=== PATIENT | female | born 1965 | race Caucasian/White ===

== ENCOUNTER 2018-08-25 09:56 | Observation (INO) ==
[2018-08-25] MEDS ORDERED: ASPIRIN 81 MG TAB.CHEW PO ONE (10:07)
--- NOTE | 2018-08-25 10:15 | ERNOTE ---
Chest Pain/Cardiac HPI Date of Service: 08/25/18 Chief Complaint: Chest Pain Time Seen by Provider: 08/25/18 10:03 Source: patient Exam Limitations: no limitations Allergies/Adverse Reactions: Allergies adhesive tape Allergy (Verified 06/23/18 12:44) povidone-iodine [From Betadine] Allergy (Verified 06/23/18 12:44) soap [From Betadine] Allergy (Verified 08/25/18 10:06) Home Medications: HOME MEDICATIONS albuterol sulfate HFA 90 mcg/actuation aerosol inhaler 2 puff IH .q4-6h PRN g 06/23/18 [Last Taken Unknown] cholecalciferol (vitamin D3) 50,000 unit capsule 50,000 unit PO QWEEK 06/23/18 [Last Taken Unknown] duloxetine 30 mg capsule,delayed release 30 mg PO DAILY 06/23/18 [Last Taken Unknown] gabapentin 300 mg capsule 300 mg PO TID 06/23/18 [Last Taken Unknown] polyethylene glycol 3350 17 gram/dose oral powder 17 g PO DAILY g 06/23/18 [Last Taken Unknown] potassium gluconate 550 mg (90 mg) tablet 550 mg PO DAILY tab 06/23/18 [Last Taken Unknown] vitamin B12 500 mcg-folic acid 400 mcg tablet 1 tab PO DAILY 06/23/18 [Last Taken Unknown] Pain Score #1 Pain Score: 7 Narrative: The patient is a 53 year old female who presents for left anterior chest pain which has been present for 3 hours. There are associated symptoms of nausea and fatigue. The patient reports pain to left anterior chest, 7/10. There are no alleviating factors. There are aggravating factors of activity and deep breathing. Previous treatments have included: none. The past medical history includes: depression, CKD and HLD. The social history is positive for current tobacco and marijuana use. The patient has had no ill contacts. Patient denies previous cardiac workup. Nitro Today/Relief: no nitro taken today Aspirin Treatment Today: no aspirin today Associated Symptoms: Present: cough, nausea, back pain. Absent: dizziness, shortness of breath, diaphoresis, fever/chills, vomiting, abdominal pain Prior Chest Pain/Cardiac Workup: Reports: no prior cardiac workup Review of Systems - Review of Systems Constitutional: Present: fatigue. Absent: fever EYE: Present: no symptoms reported ENT: Present: no symptoms reported. Absent: ear pain, nasal drainage, sore throat Respiratory: Present: cough. Absent: shortness of breath, wheezing Cardiology: Present: chest pain Gastrointestinal/Abdominal: Present: nausea. Absent: vomiting, diarrhea, abdominal pain Genitourinary: Present: no symptoms reported. Absent: dysuria Musculoskeletal: Present: back pain Skin: Present: no symptoms reported. Absent: rash Neurological: Present: no symptoms reported Endocrine: Present: no symptoms reported Hematologic/Lymphatic: Present: no symptoms reported Psych: Present: no symptoms reported All Other Systems: All systems neg except as marked Medical History (Last Reviewed 08/25/18 @ 10:13 by PENELOPE Benton) Cigarette nicotine dependence Onset Date: Unknown Depression Onset Date: Unknown Chronic kidney disease Onset Date: Unknown Chronic pain Onset Date: Unknown Hyperlipidemia Onset Date: Unknown Vitamin D deficiency Onset Date: Unknown Surgical History: Surgical History (Last Reviewed 08/25/18 @ 10:13 by PENELOPE Benton) History of section history of mass removed from vocal cords Onset Date: ~2017 Family History: Family History (Last Reviewed 08/25/18 @ 10:13 by PENELOPE Benton) Father No problems noted. Mother CAD (coronary artery disease) Brother Cancer Aunt Cancer Uncle Cancer leukemia Social History: Preferred Language Albanian Smoking Status Current every day smoker Have you smoked in the past 12 Yes months Alcohol Use none Drug Use marijuana No Social History Section defined Physical Exam - Physical Exam General Appearance: Present: wd/wn, alert, mild distress Head Exam: Present: normal inspection Eye Exam: Normal inspection: bilateral Neck: Present: normal inspection Respiratory: Present: no respiratory distress, normal breath sounds, no accessory muscle use, lungs clear, chest tenderness - left anterior chest with palpation Cardiovascular/Chest: Present: regular rate, rhythm, no murmur Peripheral Pulses: N=norm/S=strong/W=weak/B=bound/A=absent: Radial (L): Normal Gastrointestinal/Abdominal: Present: normal bowel sounds, nontender, nondistended, soft, no organomegaly Back Exam: Present: no vertebral tenderness Neurological Exam: Present: alert, oriented, normal mood/affect Skin Exam: Present: normal color, warm/dry Progress - Date and Time Seen: Date and Time: 08/25/18 11:24 Reviewed case with . Initial trop negative with improvement to pain following administration of Nitro. Discussed use of Nitro paste with due to improvement of pain, due to hypotension following administration would like to hold off for now and monitor for repeat trop. Patient was administered aspirin prior to admission. Will start patient on statin for admission. - Results and Orders Patient's Lab Results:: I have reviewed the patient's lab results. - Vital Signs Patient's Vital Signs:: I have reviewed the patient's vital signs. Vital Signs: Vital Signs 08/25/18 09:59 Temperature 36.0 C Pulse Rate 65 Respiratory Rate 24 H Blood Pressure 140/88 H O2 Sat by Pulse Oximetry 99 - EKG EKG #1 EKG: NSR EKG read: Reviewed by me - X-Ray X-Ray #1 X-Ray: chest Interpretation: Reviewed by me X-ray Comments: No acute cardiopulmonary abnormalities. - Progress/Reassessment Chief Complaint: Chest Pain Departure Clinical Impression: Chest pain Qualifiers: Chest pain type: unspecified Qualified Code(s): R07.9 - Chest pain, unspecified - Departure Disposition: Still a patient Condition: Good
[2018-08-25] MEDS: NITROGLYCERIN 0.4 MG/TAB BTL SL PRN ×3 (10:30→10:50)
[2018-08-25 10:34] LABS: Hematocrit 40.4 % (37.0-47.0); Hemoglobin 13.2 gm/dL (12.5-16.0); Mean Cell Volume 97.3 fl (78-100); Mean Corpuscular Hemoglobin 31.8 pg (27-31); Mean Corpuscular Hgb Conc 32.7 g/dl (32-36); Mean Platelet Volume 11.3 fl (8-12.5); Neutrophil # 3.8 K/mm3 (1.3-6.0); Neutrophil % 59.3 % (42-75.0); Platelet Count 311 K/mm3 (150-450); Red Blood Count 4.15 M/mm3 (4.2-5.4); Red Cell Distribution Width 14.2 % (11.5-14.0); White Blood Count 6.4 K/mm3 (4.0-10.5)
[2018-08-25 10:47] LABS: INR 1.01 INR (0.92-1.08)
[2018-08-25 10:54] LABS: ALT 20 U/L (19-67); AST 20 U/L (0-48); Albumin * 3.3 gm/dl (3.4-5.0); Alkaline Phosphatase * 78 U/L (50-170); Anion Gap 12.5 mmol/L (6.8-13.8); Bilirubin, Total 0.4 mg/dL (0.0-1.1); Blood Urea Nitrogen 10 mg/dL (3-23); Ca. Corrected For Albumin 9.2 mg/dL (8.4-10.2); Carbon Dioxide 27.4 mmol/L (24-32.6); Chloride 105 mmol/L (97-106); Glucose * 101 mg/dL (70-110); Potassium 3.9 mmol/L (3.4-4.6); Sodium 141 mmol/L (132-142); Total Protein 6.7 gm/dL (6.2-8.2); Troponin I Less than 0.017 ng/mL (0.00-0.10)
[2018-08-25] MEDS ORDERED: ROSUVASTATIN CALCIUM 20 MG TABLET PO STA (11:37)
[2018-08-25 11:53] LABS: Urine Bilirubin Negative (NEGATIVE); Urine Blood Negative /ul (NEGATIVE); Urine Ketone Negative (NEGATIVE); Urine Nitrite Negative (NEGATIVE); Urine Protein Negative (NEGATIVE); Urine Specific Gravity <=1.005 SP.GR. (1.005-1.010); Urine Urobilinogen Normal (NORMAL); Urine pH 6.5 pH (5.0-7.0)
[2018-08-25 12:01] LABS: Urine Appearance Clear (CLEAR); Urine Bacteria None Seen; Urine Color Yellow; Urine RBC None Seen /hpf (0-5); Urine WBC None Seen /hpf (0-5)
[2018-08-25 12:08] LABS: Cocaine Ur Negative (NEGATIVE); Urine Barbiturate Negative (NEGATIVE); Urine Benzodiazepines Negative (NEGATIVE); Urine Opiates Negative (NEGATIVE); Urine PCP Negative (NEGATIVE)
[2018-08-25 12:09] LABS: Urine THC Positive (NEGATIVE)
[2018-08-25] MEDS ORDERED: MORPHINE SULFATE 2 MG/ML DISP.SYRIN IV ONE (12:28)
[2018-08-25 13:34] LABS: Troponin I Less than 0.017 ng/mL (0.00-0.10)
[2018-08-25 13:40] LABS: CK Total * 60 U/L (0-259); CKMB 0.9 ng/mL (0.0-9.0)
--- NOTE | 2018-08-25 14:21 | HP ---
Chief Complaint - Chief Complaint Date of Service: 08/25/18 Time of Service: 17:59 Chief Complaint: chest pain History of Present Illness: 53-year-old female presented to the ER today with chest pain that began this morning without cause. Patient states that she also had nausea and fatigue. She has no previous cardiac history. She states that the pain radiated to her back but did not go into her jaw or her arms. She denied di aphoresis, headache, swelling her legs. She received 3 doses of nitro in the ER which brought her pain down from a 7 to a 2. Her initial troponin was negative as well as the rest of her labs. She did have marijuana in her urine tox screen. Her vital signs are stable in the ER and she was admitted for chest pain rule out. Patient has a history of hyperlipidemia, depression. Medical History (Last Reviewed 08/25/18 @ 12:46 by Savi Randle RN) Ulna fracture with surgery Cigarette nicotine dependence Onset Date: Unknown Depression Onset Date: Unknown Chronic kidney disease Onset Date: Unknown Chronic pain Onset Date: Unknown Hyperlipidemia Onset Date: Unknown Vitamin D deficiency Onset Date: Unknown Surgical History: Surgical History (Last Reviewed 08/25/18 @ 12:46 by Savi Randle RN) Hx of cholecystectomy History of section history of mass removed from vocal cords Onset Date: ~2017 Family History: Family History (Last Reviewed 08/25/18 @ 12:46 by Savi Randle RN) Father No problems noted. Mother CAD (coronary artery disease) Aneurysm Diabetes Hypertension Brother Cancer Diabetes Hypertension Aunt Cancer Uncle Cancer leukemia Social History: Patient Lives/Resources Home Utilized Occupation customer service at [employer] Preferred Language Congolese Do you have any druze or Yes: Hindu cultural preference? Smoking Status Current every day smoker Have you smoked in the past 12 Yes months Alcohol Use none Drug Use marijuana No Social History Section defined Review Of Systems (GEN) - Review of Systems Generalized/Overall Review: Present: Fatigue. Absent: Chills, Fever EENTM: Present: No Symptoms Reported Respiratory: Absent: Cough, Shortness of Breath, Stridor, Wheezing Cardiac: Present: Chest Pain. Absent: Edema, Palpitations, Syncope Abdominal: Present: Nausea, Melena. Absent: Vomiting, Hematemesis, Abdominal Pain, Constipation, Diarrhea, Bright blood from rectum Genitourinary: Absent: Burning, Itching, Urgency, Frequency Musculoskeletal: Present: Muscle Pain - Chest wall Neurological: Absent: Headache, Anxiety, Depressed Skin: Present: No Symptoms Reported Endocrine: Present: No Symptoms Reported Allergies/Adverse Reactions: Allergies Allergy/AdvReac Type Severity Reaction Status Date / Time adhesive tape Allergy Verified 08/25/18 12:47 Influenza Virus Vaccines Allergy Vomiting Verified 08/25/18 12:47 povidone-iodine Allergy Verified 08/25/18 12:47 [From Betadine] soap [From Betadine] Allergy Verified 08/25/18 12:47 Home Medications: HOME MEDICATIONS albuterol sulfate HFA 90 mcg/actuation aerosol inhaler 2 puff IH .q4-6h PRN g 06/23/18 [Last Taken Unknown] cholecalciferol (vitamin D3) 50,000 unit capsule 20,000 unit PO QWEEK 06/23/18 [Last Taken 08/25/18] gabapentin 300 mg capsule 300 mg PO TID 06/23/18 [Last Taken Unknown] polyethylene glycol 3350 17 gram/dose oral powder 17 g PO DAILY PRN g 06/23/18 [Last Taken Unknown] vitamin B12 500 mcg-folic acid 400 mcg tablet 500 mcg PO DAILY 06/23/18 [Last Taken Unknown] Ipratropium Pep [Atrovent Hfa] 2 puff INHALATION QID PRN 08/25/18 [Last Take n Unknown] Potassium 99 mg PO DAILY 08/25/18 [Last Taken Unknown] Exam - Exam Vital Signs: Vital Signs - Last Taken Temp 36.4 C 08/25/18 12:11 Pulse 74 08/25/18 12:11 Resp 21 H 08/25/18 12:11 BP 120/80 08/25/18 12:11 Pulse Ox 97 08/25/18 12:11 Constitutional: Present: Alert, Oriented x3, Cooperative, No distress ENT Exam: Present: hearing grossly normal. Absent: nasal congestion Eye Exam: bilateral eye: normal inspection, EOMI Neck: Present: non-tender, full range of motion, supple Back Exam: Present: normal inspection, no CVA tenderness Respiratory: Present: chest non-tender, lungs clear, normal breath sounds Cardiovascular/Chest: Present: normal peripheral pulses, regular rate, rhythm, chest tender - To palpation Abdomen: Present: Normal bowel sounds, soft, nontender /Rectal: Present: Exam deferred Skin Exam: Present: normal color, warm/dry Appearance: Present: appropriate insight, disheveled Eye contact: Present: cooperative, good eye contact, normal speech Thoughts: Present: normal thought pattern, normal mood /affect Diagnostic Studies: Abnormal Lab Results 08/25/18 08/25/18 08/25/18 Range/Units 10:31 10:31 11:48 RBC 4.15 L (4.2-5.4) M/mm3 MCH 31.8 H (27-31) pg RDW 14.2 H (11.5-14.0) % Eosinophils % 5.1 H (0.0-3.0) % Albumin 3.3 L (3.4-5.0) gm/dl Urine Marijuana (THC) Positive H (NEGATIVE) Laboratory Results WBC 6.4 K/mm3 (4.0-10.5) 08/25/18 10:31 RBC 4.15 M/mm3 (4.2-5.4) L 08/25/18 10:31 Hgb 13.2 gm/dL (12.5-16.0) 08/25/18 10:31 Hct 40.4 % (37.0-47.0) 08/25/18 10:31 MCV 97.3 fl (78-100) 08/25/18 10:31 MCH 31.8 pg (27-31) H 08/25/18 10:31 MCHC 32.7 g/dl (32-36) 08/25/18 10:31 RDW 14.2 % (11.5-14.0) H 08/25/18 10:31 Plt Count 311 K/mm3 (150-450) 08/25/18 10:31 MPV 11.3 fl (8-12.5) 08/25/18 10:31 Immature Gran % (Auto) 0.20 % (0.001-0.429) 08/25/18 10:31 Immature Gran # (Auto) 0.01 K/mm3 (0.000-0.0310) 08/25/18 10:31 Neutrophils % 59.3 % (42-75.0) 08/25/18 10:31 Lymphocytes % 27.6 % (20-51) 08/25/18 10:31 Monocytes % 7.5 % (0.0-9) 08/25/18 10:31 Eosinophils % 5.1 % (0.0-3.0) H 08/25/18 10:31 Basophils % 0.3 % (0.0-1.0) 08/25/18 10:31 Nucleated RBC % 0.0 k/mm3 (0-1) 08/25/18 10:31 Neutrophils # 3.8 K/mm3 (1.3-6.0) 08/25/18 10:31 Lymphocytes # 1.78 k/mm3 (1.5-3.5) 08/25/18 10:31 Monocytes # 0.5 k/mm3 (0.0-1.0) 08/25/18 10:31 Eosinophils # 0.3 k/mm3 (0.0-0.7) 08/25/18 10:31 Absolute Basophils 0.0 k/mm3 (0.0-0.1) 08/25/18 10:31 PT 10.0 Seconds (9.1-10.7) 08/25/18 10:31 INR (Anticoag Therapy) 1.01 INR (0.92-1.08) 08/25/18 10:31 PTT ([place]) 27.0 Seconds (24-32) 08/25/18 10:31 Sodium 141 mmol/L (132-142) 08/25/18 10:31 Plasma Sodium 141 mmol/L (130-142) 08/25/18 10:31 Potassium 3.9 mmol/L (3.4-4.6) 08/25/18 10:31 Chloride 105 mmol/L (97-106) 08/25/18 10:31 Carbon Dioxide 27.4 mmol/L (24-32.6) 08/25/18 10:31 Anion Gap 12.5 mmol/L (6.8-13.8) 08/25/18 10:31 BUN 10 mg/dL (3-23) 08/25/18 10:31 Creatinine 0.91 mg/dL (0.4-1.4) 08/25/18 10:31 Est GFR (Non-Af Amer) 68 mL/min (60-130) 08/25/18 10:31 BUN/Creatinine Ratio 11.0 (9.0-21.6) 08/25/18 10:31 Random Glucose 101 mg/dL (70-110) 08/25/18 10:31 Calcium 9.0 mg/dL (7.9-10.9) 08/25/18 10:31 Calcium Adj for Albumin 9.2 mg/dL (8.4-10.2) 08/25/18 10:31 Total Bilirubin 0.4 mg/dL (0.0-1.1) 08/25/18 10:31 AST 20 U/L (0-48) 08/25/18 10:31 ALT 20 U/L (19-67) 08/25/18 10:31 Alkaline Phosphatase 78 U/L (50-170) 08/25/18 10:31 Creatine Kinase 60 U/L (0-259) 08/25/18 13:13 CK-MB (CK-2) 0.9 ng/mL (0.0-9.0) 08/25/18 13:13 CK-MB (CK-2) Rel Index 1.5 (0.0-3.6) 08/25/18 13:13 Troponin I Less than 0.017 ng/mL (0.00-0.10) 08/25/18 13:13 Total Protein 6.7 gm/dL (6.2-8.2) 08/25/18 10:31 Albumin 3.3 gm/dl (3.4-5.0) L 08/25/18 10:31 Urine Color Yellow 08/25/18 11:46 Urine Appearance Clear (CLEAR) 08/25/18 11:46 Urine pH 6.5 pH (5.0-7.0) 08/25/18 11:46 Ur Specific [place] <=1.005 SP.GR. (1.005-1.010) 08/25/18 11:46 Urine Protein Negative mg/dL (NEGATIVE) 08/25/18 11:46 Urine Glucose (UA) Negative mg/dL (NEGATIVE) 08/25/18 11:46 Urine Ketones Negative mg/dL (NEGATIVE) 08/25/18 11:46 Urine Blood Negative /ul (NEGATIVE) 08/25/18 11:46 Urine Nitrate Negative (NEGATIVE) 08/25/18 11:46 Urine Bilirubin Negative mg/dl (NEGATIVE) 08/25/18 11:46 Urine Urobilinogen Normal EU/dl (NORMAL) 08/25/18 11:46 Ur Leukocyte Esterase Negative /ul (NEGATIVE) 08/25/18 11:46 Urine RBC None seen /hpf (0-5) 08/25/18 11:46 Urine WBC None seen /hpf (0-5) 08/25/18 11:46 Ur Epithelial Cells 0-5 /hpf (0-5) 08/25/18 11:46 Urine Bacteria None seen (NONE) 08/25/18 11:46 Urine Culture Comments No culture indicated 08/25/18 11:46 Urine Opiates Screen Negative (NEGATIVE) 08/25/18 11:48 Barbiturate Screen Negative (NEGATIVE) 08/25/18 11:48 Ur Phencyclidine Scrn Negative (NEGATIVE) 08/25/18 11:48 Urine Amphetamine Negative (NEGATIVE) 08/25/18 11:48 U Benzodiazepines Scrn Negative (NEGATIVE) 08/25/18 11:48 Urine Cocaine Screen Negative (NEGATIVE) 08/25/18 11:48 Urine Marijuana (THC) Positive (NEGATIVE) H 08/25/18 11:48 Assessment/Plan - Narrative Narrative: Patient admitted to the medical floor under observation for chest pain rule out. EKG showed no ST changes. Initial troponins negative. Patient received a spirin and Crestor in the ER. Nitrostat ordered as needed. We will trend her troponins and repeat EKG, if everything remains negative the patient likely can go home later tonight or early tomorrow morning. She was given a dose of Lovenox. Patient's other chronic medications were continued. Her vital signs are stable, she is in no distress at this time. Patient is in agreement with the treatment plan. - Assessment/Plan (1) Chest pain Problem: Acute Qualifiers: Chest pain type: unspecified Qualified Code(s): R07.9 - Chest pain, unspecified (2) Chest wall tenderness Problem: Acute (3) Marijuana use Problem: Chronic (4) History of depression Problem: Chronic
[2018-08-25] MEDS ORDERED: ENOXAPARIN SODIUM 40 MG/0.4 ML SYRG SC SCH (15:15)
[2018-08-25] MEDS ORDERED: IPRATROPIUM BROMIDE 0.5 MG/2.5 ML VIAL.NEB IH PRN (16:10)
[2018-08-25] MEDS ORDERED: POLYETHYLENE GLYCOL 3350 119 GM BTL PO PRN (16:10)
[2018-08-25] MEDS ORDERED: ALBUTEROL SULFATE 2.5 MG/0.5 ML VIAL.NEB IH PRN (16:15)
[2018-08-25] MEDS ORDERED: GABAPENTIN 300 MG CAPSULE PO SCH (17:00)
--- NOTE | 2018-08-25 20:20 | DS ---
(1) Chest pain Problem: Acute Qualifiers: Chest pain type: unspecified Qualified Code(s): R07.9 - Chest pain, unspecified (2) Chest wall tenderness Problem: Acute (3) Marijuana use Problem: Chronic (4) History of depression Problem: Chronic Description of Stay: Ashwini Perales is a 53-year-old female with no cardiac history who presented to the hospital for chest pain that began this morning without cause. She endorsed nausea and fatigue as well as pain that radiated to her back. It was initially helped with nitro. Patient admits to being a chronic cigarette smoker as well as having a history of hyperlipidemia. She was brought in for observation, her cardiac enzymes were negative x3. Her pain resolved after she was given a one- time dose of morphine 2 mg. She slept comfortably while she was here. Her EKGs had no ST elevation or depression. Her vital signs were stable during her stay. She tolerated p.o. without any complications. She wanted to go home this evening which I felt was appropriate. Advised her to follow-up with her PCP in the next 3-5 days and to take this record with her. Recommend she get an outpa tient stress test if she continues to have this nonspecific chest pain. Due to the fact that she has a history of acid reflux as well as her chest being tender with palpation, her pain did not seem to be cardiac in nature. She agreed to follow-up with her PCP who works out of [place] later this week. Procedures Performed: none Results and Findings: Lab Pending Results 08/25/18 10:31: WBC 6.4, RBC 4.15 L, Hgb 13.2, Hct 40.4, MCV 97.3, MCH 31.8 H, MCHC 32.7, RDW 14.2 H, Plt Count 311, MPV 11.3, Immature Gran % (Auto) 0.20, Immature Gran # (Auto) 0.01, Neutrophils % 59.3, Lymphocytes % 27.6, Monocytes % 7.5, Eosinophils % 5.1 H, Basophils % 0.3, Nucleated RBC % 0.0, Neutrophils # 3.8, Lymphocytes # 1.78, Monocytes # 0.5, Eosinophils # 0.3, Absolute Basophils 0.0 08/25/18 10:31: PT 10.0, INR (Anticoag Therapy) 1.01, PTT ([place]) 27.0 08/25/18 10:31: Sodium 141, Plasma Sodium 141, Potassium 3.9, Chloride 105, Carbon Dioxide 27.4, Anion Gap 12.5, BUN 10, Creatinine 0.91, Est GFR (Non-Af Amer) 68, BUN/Creatinine Ratio 11.0, Random Glucose 101, Calcium 9.0, Calcium Adj for Albumin 9.2, Total Bilirubin 0.4, AST 20, ALT 20, Alkaline Phosphatase 78, Troponin I Less than 0.017, Total Protein 6.7, Albumin 3.3 L 08/25/18 11:46: Urine Color Yellow, Urine Appearance Clear, Urine pH 6.5, Ur Specific [place] <=1.005, Urine Protein Negative, Urine Glucose (UA) Negative, Urine Ketones Negative, Urine Blood Negative, Urine Nitrate Negative, Urine Bilirubin Negative, Urine Urobilinogen Normal, Ur Leukocyte Esterase Negative, Urine RBC None seen, Urine WBC None seen, Ur Epithelial Cells 0-5, Urine Bacteria None seen, Urine Culture Comments No culture indicated 08/25/18 11:48: Urine Opiates Screen Negative, Barbiturate Screen Negative, Ur Phencyclidine Scrn Negative, Urine Amphetamine Negative, U Benzodiazepines Scrn Negative, Urine Cocaine Screen Negative, Urine Marijuana (THC) Positive H 08/25/18 13:13: Creatine Kinase 60, CK-MB (CK-2) 0.9, CK-MB (CK-2) Rel Index 1.5, Troponin I Less than 0.017 08/25/18 16:00: Troponin I Less than 0.017 Disposition: Home self-care Condition: Good Discharge Activity: Activity as tolerated Discharge Diet: General/regular food Prescriptions (Any new or edited meds): Nitroglycerin [Nitrostat] 0.4 mg SUBLINGUAL Q5MIN PRN #20 tab PRN Reason: Chest Pain Complete Home Medications List: Complete Home Medication List: albuterol sulfate HFA 90 mcg/actuation aerosol inhaler 2 puff IH .q4-6h PRN g 06/23/18 cholecalciferol (vitamin D3) 50,000 unit capsule 20,000 unit PO QWEEK 06/23/18 gabapentin 300 mg capsule 300 mg PO TID 06/23/18 polyethylene glycol 3350 17 gram/dose oral powder 17 g PO DAILY PRN g 06/23/18 vitamin B12 500 mcg-folic acid 400 mcg tablet 500 mcg PO DAILY 06/23/18 Ipratropium [place] [Atrovent Hfa] 2 puff INHALATION QID PRN 08/25/18 Nitroglycerin [Nitrostat] 0.4 mg SUBLINGUAL Q5MIN PRN #20 tab 08/25/18 Potassium 99 mg PO DAILY 08/25/18
[2018-08-25 21:24] VITALS: BP 114/78
== END 2018-08-25 21:37 | disposition home or self-care (01) ==
LOC: ER 09:56 → MS 09:56
PROVIDERS: ADMIT Family Medicine; ATTEND Family Medicine
CPT/HCPCS: 36415; 71020; 71046; 80053; 80307; 81001; 82550; 82553; 84484; 85025; 85610; 85730; 93005; 96372; 96374; 99285; G0378